=== PATIENT | female | born 2000 | race Caucasian/White ===

== ENCOUNTER 2021-02-14 17:25 | Emergency (ER) | payer OTHER, BC ==
[2021-02-14] MEDS ORDERED: Diphtheria,Pertussis(Acell),Tetanus Vaccine 0.5 ML Syringe IM ONE (17:33)
[2021-02-14] MEDS ORDERED: Acetaminophen/HYDROcodone 325-5 MG Tab PO ONE (17:33)
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
[2021-02-14] MEDS ORDERED: Cephalexin 500 MG Cap PO ONE (18:57)
== END 2021-02-14 19:28 | disposition home or self-care (01) ==
LOC: MW.ED 17:25
DX: S91.312A Laceration without foreign body, left foot, initial encounter (principal); S50.312A Abrasion of left elbow, initial encounter; Z23 Encounter for immunization; V89.2XXA Person injured in unspecified motor-vehicle accident, traffic, initial encounter; Y92.410 Unspecified street and highway as the place of occurrence of the external cause
CPT/HCPCS: 12001; 72125; 73610; 73630; 90715; 99284; A9270